=== PATIENT | female | born 1945 | race Caucasian/White ===

== ENCOUNTER 2017-10-02 11:32 | Outpatient (CLI) | payer OTHER | END 2017-10-02 19:29 | disposition home or self-care (01) | LOC: SMI 11:32 → EEVIPCON 11:32 → SMI 19:29 | DX: G31.9 Degenerative disease of nervous system, unspecified (principal); Z86.73 Personal history of transient ischemic attack (TIA), and cerebral infarction without residual deficits | CPT/HCPCS: 70551 ==